=== PATIENT | male | born 1965 | race American Indian/Alaskan Native ===

== ENCOUNTER 2019-03-01 09:41 | Day surgery (SDC) | payer OTHER ==
[~2019-03-01 09:41] MED LIST: NACL 0.9% 1000 ML 1,000 ML IV SCH
--- NOTE | 2019-03-01 11:20 | Short Stay Summary ---
Short Stay Documentation Date of service: 03/01/19 Narrative H&P: Pt is a 53 yo male who presents for screening colonoscopy. No lower gi complaints. - History H&P: obtained from office Past Medical History: No medical history, other Past Surgical History: No surgical history Social history: no significant social history - Allergies and Medications Current Medications: Allergies No Known Allergies Allergy (Verified 02/28/19 13:04) Home Medications Medication Instructions Recorded Confirmed Last Taken Type No Known Home Medications [No 03/01/19 03/01/19 Unknown History Reported Home Medications] Active Medications Sodium Chloride (Nacl 0.9% 1000 Ml) 1,000 mls @ 50 mls/hr IV DIRECT RADHA Last Admin: 03/01/19 10:28 Dose: 50 mls/hr Documented by: - Physical exam General appearance: no acute distress Lungs: Clear to auscultation Heart: Regular rate, Normal S1, Normal S2 Gastrointestinal: normal - Brief post op/procedure progress note Date of procedure: 03/01/19 Pre-op diagnosis: screening colonoscopy Post-op diagnosis: other Procedure: colonoscopy with snare polypectomy and biopsy Anesthesia: MAC Findings: 1. colon polyps x 3 Surgeon: KANIKA TENORIO Estimated blood loss: minimal Pathology: list (Jar A - ascending colon polyps, Jar B - transverse colon polyp) Specimen disposition: to lab Condition: stable - Disposition Condition at discharge: Good Disposition: DC-01 TO HOME OR SELFCARE Short Stay Discharge Plan Follow up with: ELKIN SANTAMARIA MD [Primary Care Provider] - 7 Days
--- NOTE | 2019-03-01 11:25 | Operative Report ---
Operative Report Operative Report: Colonoscopy Procedure Note with Snare polypectomy and biopsy Date of procedure: 03/01/2019 Endoscopist: David Loja Pre-op diagnosis: Screening for colon cancer Post-op diagnosis: colon polyps x 3 Anesthesia: MAC Complications: No immediate complications Estimated blood loss: minimal Procedure: After consent was obtained, the patient was placed in the left lateral decubitus position. The olympus colonoscope was inserted into the patient's rectum under direct vision, and advanced to the cecum without difficulty. The patient tolerated the procedure well. The views of the mucosa were good. The quality of prep was good. The patient's vital signs were monitored continuously throughout the procedure. Findings: There was an ~10 mm sessile polyp in the ascending colon. The polyp was removed and retrieved with hot snare polypectomy. There was an ~1 mm sessile polyp in the ascending colon. The polyp was removed and retrieved with cold biopsy forceps. There was an ~10 mm sessile polyp in the transverse colon. The polyp was removed and retrieved with hot snare polypectomy. Impression: 1. Colon polyps x 3 as above removed with snare polypectomy and biopsy forceps Recommendations: -follow up pathology -avoid nsaid's x 7 days -repeat colonoscopy for surveillance in 3 years
[2019-03-01] MEDS ORDERED: DIPRIVAN 10 MG/ML IV ONE (12:21)
[2019-03-01 13:50] VITALS: BP 115/75
== END 2019-03-01 13:00 | disposition home or self-care (01) ==
LOC: GIO 09:41
PROVIDERS: ATTEND Internal Medicine Gastroenterology
DX: Z12.11 Encounter for screening for malignant neoplasm of colon (principal); D12.2 Benign neoplasm of ascending colon; K63.5 Polyp of colon; Z79.899 Other long term (current) drug therapy; Z98.890 Other specified postprocedural states
CPT/HCPCS: 45380; 45385; 88305; J2704; J7030

== ENCOUNTER 2019-07-31 11:11 | Emergency (ER) | payer OTHER ==
[2019-07-31 11:18] VITALS: BP 146/93
[2019-07-31] MEDS ORDERED: TETANUS,DIPH,PERTUSS(ACELL) VACCINE 0.5 ML SYRINGE IM ONE (11:18)
--- NOTE | 2019-07-31 11:18 | Emergency Department Report ---
Blank Doc - Documentation Documentation: 53-year-old male that presents with right fingers lac. This initial assessment/diagnostic orders/clinical plan/treatment(s) is/are subject to change based on patient's health status, clinical progression and re- assessment by fellow clinical providers in the ED. Further treatment and workup at subsequent clinical providers discretion. Patient/guardians urged not to elope from the ED as their condition may be serious if not clinically assessed and managed. Initial orders include: 1- Patient sent to [facility] for further evaluation and treatment 2- lac needed 3- tetanus
[2019-07-31] MEDS ORDERED: BUPIVACAINE/PF (0.5%) 5 MG/1 ML 10 ML VIAL INFILTRATI ONE (12:57)
[2019-07-31] MEDS ORDERED: BUPIVACAINE/PF (0.5%) 5 MG/1 ML 10 ML VIAL INFILTRATI NR (13:00)
--- NOTE | 2019-07-31 14:23 | Emergency Department Report ---
- General Chief Complaint: Wound/Laceration Stated Complaint: RT HAND CUT/PAIN Time Seen by Provider: 07/31/19 11:17 Source: patient Mode of arrival: Ambulatory Limitations: No Limitations - History of Present Illness Initial Comments: ` Patient is a 53-year-old -English male who presented with a laceration to left hand. Patient has got to the second third and fourth digits on the volar surface. There is full range of motion exam. Patient was using a saw and was helping a friend put up cabinets and lacerated his fingers. - Related Data Previous Rx's Medication Instructions Recorded Last Taken Type Ibuprofen [Motrin 600 MG tab] 600 mg PO Q8H PRN #20 tablet 07/31/19 Unknown Rx Sulfamethoxazole/Trimethoprim 1 each PO BID #14 tablet 07/31/19 Unknown Rx [Bactrim DS TAB] Allergies Allergy/AdvReac Type Severity Reaction Status Date / Time No Known Allergies Allergy Verified 02/28/19 13:04 ED Review of Systems ROS: Stated complaint: RT HAND CUT/PAIN Other details as noted in HPI Comment: All other systems reviewed and negative ED Past Medical Hx - Past Medical History Previous Medical History?: No - Surgical History Past Surgical History?: No - Social History Smoking Status: Never Smoker Substance Use Type: None - Medications Home Medications: Home Medications Medication Instructions Recorded Confirmed Last Taken Type Ibuprofen [Motrin 600 MG tab] 600 mg PO Q8H PRN #20 tablet 07/31/19 Unknown Rx Sulfamethoxazole/Trimethoprim 1 each PO BID #14 tablet 07/31/19 Unknown Rx [Bactrim DS TAB] ED Physical Exam - General Limitations: No Limitations General appearance: alert, in distress - Head Head exam: Present: atraumatic, normocephalic - Eye Eye exam: Present: normal appearance - ENT ENT exam: Present: mucous membranes moist - Neck Neck exam: Present: normal inspection - Extremities Exam Extremities exam: Present: other (patient with a laceration to digits 2 through 4 on the volar surface. Digit to has a laceration that is 2 cm on the distal phalanx segment. Digits 3 and 4 both have lacerations through the middle phalanx sec. Both of these are to centimeters as well.) ED Course Vital Signs 07/31/19 07/31/19 11:18 13:14 Temperature 98.3 F Pulse Rate 74 Respiratory 18 17 Rate Blood Pressure 146/93 [Left] O2 Sat by Pulse 97 Oximetry - Laceration /Wound Repair Right Hand Wound Location: upper extremity Wound Length (cm): 6 (each of the fingers minutes in an H&P have 2 cm lacerations.) Wound's Depth, Shape: superficial, linear Wound Explored: clean Irrigated w/ Saline (ccs): 200 Betadine Prep?: Yes Anesthesia: 0.5% Sensorcaine (digital block was performed with good anesthesia) Volume Anesthetic (ccs): 10 Wound Repaired With: sutures Suture Size/Type: 4:0 Number of Sutures: 18 (second digit has 6 sutures. The third digit has 7 sutures. The fourth digit has 5 sutures.) Layer Closure?: No Sterile Dressing Applied?: Yes Critical care attestation.: If time is entered above; I have spent that time in minutes in the direct care of this critically ill patient, excluding procedure time. ED Disposition Clinical Impression: Finger laceration Disposition: DC- TO HOME OR SELFCARE Is pt being admited?: No Does the pt Need Aspirin: No Condition: Stable Instructions: Suture Care (ED), Laceration (ED), Finger Laceration (ED) Additional Instructions: Sutures need to be removed in approximately one week. Referrals: PRIMARY CARE, [Primary Care Provider] - 3-5 Days Time of Disposition: 14:25
== END 2019-07-31 14:33 | disposition home or self-care (01) ==
LOC: ED 11:11
DX: S61.210A Laceration without foreign body of right index finger without damage to nail, initial encounter (principal); S61.212A Laceration without foreign body of right middle finger without damage to nail, initial encounter; S61.214A Laceration without foreign body of right ring finger without damage to nail, initial encounter; Z79.899 Other long term (current) drug therapy; W31.2XXA Contact with powered woodworking and forming machines, initial encounter; Y93.89 Activity, other specified; Y92.69 Other specified industrial and construction area as the place of occurrence of the external cause; Y99.8 Other external cause status
CPT/HCPCS: 90471; 90715